=== PATIENT | male | born 1995 | race Caucasian/White ===

== ENCOUNTER 2018-04-15 08:13 | Emergency (ER) | payer MEDICAID ==
[~2018-04-15] VITALS: Ht 152.4 cm; Wt 91.0 kg
[2018-04-15 08:16] VITALS: BP 127/77; PULSE 78; RESP 18; Ht 152.4 cm; Wt 91.0 kg
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
== END 2018-04-15 08:44 | disposition home or self-care (01) ==
LOC: FTE 08:13
DX: S62.92XA Unspecified fracture of left hand, initial encounter for closed fracture (principal); Y04.0XXA Assault by unarmed brawl or fight, initial encounter
CPT/HCPCS: 29125; Z7502